=== PATIENT | male | born 1970 | race Caucasian/White ===

== ENCOUNTER 2016-08-05 22:55 | Emergency (ER) | payer OTHER, SELFPAY ==
[~2016-08-05 22:55] MED LIST: ASPIRIN81 MG PO; FLAGYL500 MG PO; HCTZ25 MG PO; LEVAQUIN500 MG PO; NEXIUM40 MG PO; NICODERM 21MG PA1 EA TD; ZESTRIL30 MG PO
== END 2016-08-06 02:27 | disposition other institution (70) ==
LOC: ER 22:55
DX: K57.92 Diverticulitis of intestine, part unspecified, without perforation or abscess without bleeding (principal); R10.32 Left lower quadrant pain; F17.210 Nicotine dependence, cigarettes, uncomplicated; Z88.8 Allergy status to other drugs, medicaments and biological substances
CPT/HCPCS: 96372; 99284; 99285-25

== ENCOUNTER 2016-08-05 22:55 | Inpatient (IN) | payer OTHER, SELFPAY ==
[~2016-08-05] VITALS: Ht 175.3 cm; Wt 149.0 kg
[2016-08-06 00:14] LABS: URINE BILIRUBIN NEGATIVE (NEGATIVE); URINE BLOOD 2+ (NEGATIVE); URINE GLUCOSE (UA) NORMAL (NORMAL); URINE KETONE NEGATIVE (NEGATIVE); URINE LEUKOCYTE ESTERASE TRACE (NEGATIVE); URINE NITRATE NEGATIVE (NEGATIVE); URINE PROTEIN NEGATIVE (NEGATIVE); UROBILINOGEN NORMAL mg/dL (<1.0)
[2016-08-06 00:34] LABS: BASO # 0.1 10_X3_uL (0.0-0.1); BASO % 0.4 % (0.2-1.2); EOS # 0.6 10_X3_uL (0.0-0.5); EOS % 5.1 % (0.8-7.0); GRAN % 59.4 % (34.0-67.9); HEMATOCRIT 45.3 % (40-51); HEMOGLOBIN 15.3 g/dL (13.7-17.5); LYMPH # 3.3 10_X3_uL (1.3-3.6); MEAN CORPUSCULAR HGB CONC 33.8 g/dL (32.0-36.0); MEAN CORPUSCULAR VOLUME 91.9 fL (79-92); MEAN PLATELET VOLUME 9.5 fl (7.5-11.5); MONO # 0.8 10_X3_uL (0.3-0.8); MONO % 7.1 % (5.3-12.2); PLATELET COUNT 333 x10_3/uL (163-337); RED BLOOD COUNT 4.93 x10_6/uL (4.6-6.1); WHITE BLOOD COUNT 11.8 x10_3/uL (4.2-9.1)
[2016-08-06 00:44] LABS: URINE WBC 0-5 /[HPF] (0-3)
[2016-08-06 00:52] LABS: ALBUMIN 4.1 gm/dL (3.4-5.0); ALKALINE PHOSPHATASE 115 U/L (50-136); ALT/SGPT 22 U/L (7.53-40.17); AMYLASE 72 U/L (15.62-74.58); AST/SGOT 18 U/L (6.66-35.34); BILIRUBIN,TOTAL 0.21 mg/dL (0.0-1.0); BLOOD UREA NITROGEN 13 mg/dL (7-18); CALCIUM 9.2 mg/dL (8.7-10.7); CARBON DIOXIDE 26 mmol/L (21-32); GLUCOSE,RANDOM 156 mg/dL (70-99); LIPASE 27 U/L (6.75-60.75); POTASSIUM 3.7 mmol/L (3.5-5.1); SODIUM 135 mmol/L (136-145); TOTAL PROTEIN 7.2 gm/dL (6.4-8.2)
[2016-08-07 07:18] LABS: HEMATOCRIT 44.7 % (40-51); HEMOGLOBIN 14.9 g/dL (13.7-17.5); MEAN CORPUSCULAR HGB CONC 33.3 g/dL (32.0-36.0); MEAN CORPUSCULAR VOLUME 93.1 fL (79-92); MEAN PLATELET VOLUME 9.6 fl (7.5-11.5); RED BLOOD COUNT 4.8 x10_6/uL (4.6-6.1); RED CELL DISTRIBUTION WIDTH 13.9 % (11.6-14.4); WHITE BLOOD COUNT 10.3 x10_3/uL (4.2-9.1)
[2016-08-07 07:33] LABS: BLOOD UREA NITROGEN 12 mg/dL (7-18); CALCIUM 8.7 mg/dL (8.7-10.7); CARBON DIOXIDE 29 mmol/L (21-32); GLUCOSE,RANDOM 108 mg/dL (70-99); POTASSIUM 4.4 mmol/L (3.5-5.1); SODIUM 139 mmol/L (136-145)
== END 2016-08-07 11:47 | disposition home or self-care (01) | DRG 392 ==
LOC: ER 22:55 → MS 08-06 02:27
PROVIDERS: Internal Medicine; ADMIT Family Medicine
DX: K57.92 Diverticulitis of intestine, part unspecified, without perforation or abscess without bleeding (principal); R10.32 Left lower quadrant pain; I10 Essential (primary) hypertension; I25.10 Atherosclerotic heart disease of native coronary artery without angina pectoris; J44.9 Chronic obstructive pulmonary disease, unspecified; G47.30 Sleep apnea, unspecified; G89.29 Other chronic pain; M54.5 Low back pain; R05 Cough; R31.9 Hematuria, unspecified; E78.5 Hyperlipidemia, unspecified; F32.9 Major depressive disorder, single episode, unspecified; Z95.5 Presence of coronary angioplasty implant and graft; Z83.3 Family history of diabetes mellitus; Z82.49 Family history of ischemic heart disease and other diseases of the circulatory system; F17.210 Nicotine dependence, cigarettes, uncomplicated; Z79.891 Long term (current) use of opiate analgesic; Z79.82 Long term (current) use of aspirin; Z79.899 Other long term (current) drug therapy; Z88.8 Allergy status to other drugs, medicaments and biological substances; Z80.1 Family history of malignant neoplasm of trachea, bronchus and lung
CPT/HCPCS: 36415; 80048; 80053; 81001; 82150; 83690; 85025; 96372; 96374; 99070; 99284; 99285-25; J7040; Q9967

== ENCOUNTER 2016-08-19 14:06 | Emergency (ER) | payer OTHER ==
[2016-08-19 14:45] LABS: BASO # 0.1 10_X3_uL (0.0-0.1); BASO % 0.5 % (0.2-1.2); EOS # 0.3 10_X3_uL (0.0-0.5); EOS % 2.9 % (0.8-7.0); GRAN # 6.7 10_X3_uL (1.8-5.4); GRAN % 62.9 % (34.0-67.9); HEMATOCRIT 45.8 % (40-51); HEMOGLOBIN 15.7 g/dL (13.7-17.5); LYMPH # 2.7 10_X3_uL (1.3-3.6); LYMPH % 25.3 % (21.8-53.1); MEAN CORPUSCULAR HEMOGLOBIN 31.6 pg (27.0-33.0); MEAN CORPUSCULAR HGB CONC 34.3 g/dL (32.0-36.0); MEAN CORPUSCULAR VOLUME 92.2 fL (79-92); MONO # 0.9 10_X3_uL (0.3-0.8); MONO % 8.4 % (5.3-12.2); PLATELET COUNT 345 x10_3/uL (163-337); RED BLOOD COUNT 4.97 x10_6/uL (4.6-6.1); WHITE BLOOD COUNT 10.6 x10_3/uL (4.2-9.1)
[2016-08-19 14:55] LABS: URINE BILIRUBIN NEGATIVE (NEGATIVE); URINE BLOOD 1+ (NEGATIVE); URINE GLUCOSE (UA) NORMAL (NORMAL); URINE KETONE NEGATIVE (NEGATIVE); URINE LEUKOCYTE ESTERASE NEGATIVE (NEGATIVE); URINE NITRATE NEGATIVE (NEGATIVE); URINE PROTEIN NEGATIVE (NEGATIVE); UROBILINOGEN NORMAL mg/dL (<1.0)
[2016-08-19 15:03] LABS: ALBUMIN 4.1 gm/dL (3.4-5.0); ALKALINE PHOSPHATASE 97 U/L (50-136); ALT/SGPT 17 U/L (7.53-40.17); AST/SGOT 16 U/L (6.66-35.34); BILIRUBIN,TOTAL 0.44 mg/dL (0.0-1.0); BLOOD UREA NITROGEN 10 mg/dL (7-18); CALCIUM 9.6 mg/dL (8.7-10.7); CARBON DIOXIDE 27 mmol/L (21-32); CREATININE 0.8 mg/dL (0.6-1.3); GLUCOSE,RANDOM 130 mg/dL (70-99); LIPASE 27 U/L (6.75-60.75); POTASSIUM 4.1 mmol/L (3.5-5.1); SODIUM 138 mmol/L (136-145); TOTAL PROTEIN 7.5 gm/dL (6.4-8.2)
[2016-08-19 15:13] LABS: URINE WBC RARE /[HPF] (0-3)
== END 2016-08-19 16:26 | disposition home or self-care (01) ==
LOC: ER 14:06
PROVIDERS: Internal Medicine
DX: K57.92 Diverticulitis of intestine, part unspecified, without perforation or abscess without bleeding (principal); R10.32 Left lower quadrant pain; R19.7 Diarrhea, unspecified; Z88.8 Allergy status to other drugs, medicaments and biological substances; Z79.82 Long term (current) use of aspirin; Z79.899 Other long term (current) drug therapy
CPT/HCPCS: 36415; 80053; 81001; 83690; 85025; 99283

== ENCOUNTER 2016-09-24 15:21 | Emergency (ER) | payer OTHER ==
[2016-09-24 15:48] LABS: BASO # 0.1 10_X3_uL (0.0-0.1); BASO % 0.4 % (0.2-1.2); EOS # 0.5 10_X3_uL (0.0-0.5); EOS % 4.2 % (0.8-7.0); GRAN # 7.8 10_X3_uL (1.8-5.4); HEMATOCRIT 48.2 % (40-51); HEMOGLOBIN 16.3 g/dL (13.7-17.5); LYMPH # 2.9 10_X3_uL (1.3-3.6); LYMPH % 23.4 % (21.8-53.1); MEAN CORPUSCULAR HEMOGLOBIN 31.1 pg (27.0-33.0); MEAN CORPUSCULAR HGB CONC 33.8 g/dL (32.0-36.0); MONO # 1.1 10_X3_uL (0.3-0.8); PLATELET COUNT 379 x10_3/uL (163-337); RED BLOOD COUNT 5.24 x10_6/uL (4.6-6.1); RED CELL DISTRIBUTION WIDTH 14.3 % (11.6-14.4); WHITE BLOOD COUNT 12.4 x10_3/uL (4.2-9.1)
[2016-09-24 16:04] LABS: ALBUMIN 4.1 gm/dL (3.4-5.0); ALKALINE PHOSPHATASE 106 U/L (50-136); ALT/SGPT 25 U/L (7.53-40.17); AST/SGOT 18 U/L (6.66-35.34); BILIRUBIN,TOTAL 0.46 mg/dL (0.0-1.0); BLOOD UREA NITROGEN 12 mg/dL (7-18); CALCIUM 9.4 mg/dL (8.7-10.7); CARBON DIOXIDE 25 mmol/L (21-32); CREATININE 0.9 mg/dL (0.6-1.3); GLUCOSE,RANDOM 130 mg/dL (70-99); POTASSIUM 3.9 mmol/L (3.5-5.1); SODIUM 136 mmol/L (136-145); TOTAL PROTEIN 7.4 gm/dL (6.4-8.2)
== END 2016-09-24 17:05 | disposition home or self-care (01) ==
LOC: ER 15:21
PROVIDERS: Internal Medicine
DX: R10.32 Left lower quadrant pain (principal); K57.90 Diverticulosis of intestine, part unspecified, without perforation or abscess without bleeding; Z98.890 Other specified postprocedural states; Z79.899 Other long term (current) drug therapy; Z79.82 Long term (current) use of aspirin
CPT/HCPCS: 36415; 80053; 85025; 96372; 99283; 99283-25